=== PATIENT | female | born 1995 | race Caucasian/White ===

== ENCOUNTER 2021-07-05 15:43 | Emergency (ER) | payer BC ==
[~2021-07-05] VITALS: Ht 175.3 cm; Wt 68.2 kg
[2021-07-05] MEDS ORDERED: BIRTH CONTROL (16:42)
[2021-07-05] MEDS ORDERED: PRISTIQ50 M1 PO (16:43)
[2021-07-05 16:52] LABS: BASO # 0.02 K/mm3 (0.02-0.10); EOS # 0.04 K/mm3 (0.04-0.40); EOS % 0.3 % (1.0-5.0); HEMOGLOBIN 13.4 g/dL (12.5-16.0); MEAN CELL VOLUME 97 fl (78-100); MEAN CORPUSCULAR HEMOGLOBIN 32 pg (27-31); MEAN CORPUSCULAR HGB CONC 33 g/dL (33-37); MEAN PLATELET VOLUME 11.8 fl (7.4-10.4); MONO # 0.78 K/mm3 (0.20-0.80); NEU # 8.02 K/mm3 (1.40-6.50); PLATELET COUNT 207 K/mm3 (130-400); RED BLOOD COUNT 4.25 M/mm3 (4.10-5.30); RED CELL DISTRIBUTION WIDTH 12.6 % (11.5-14.5); WHITE BLOOD COUNT 11.7 K/mm3 (4.8-10.8)
[2021-07-05 16:58] LABS: POTASSIUM 4.1 mmol/L (3.5-5.1); SODIUM 139 mmol/L (136-145)
[2021-07-05 16:59] LABS: ALBUMIN 4.4 g/dL (3.5-5.0); CALCIUM 9.7 mg/dL (8.3-10.5)
[2021-07-05 17:01] LABS: TOTAL PROTEIN 7.8 g/dL (6.4-8.3)
[2021-07-05 17:02] LABS: CARBON DIOXIDE 20 mmol/L (22-29); GLUCOSE 76 mg/dL (65-105); TOTAL BILIRUBIN 0.4 mg/dL (0.2-1.2)
[2021-07-05 17:06] LABS: AST-SGOT 22 U/L (5-34)
[2021-07-05 17:09] LABS: ALT/SGPT 18 U/L (0-55)
[2021-07-05 17:15] LABS: TROPONIN-I < 0.030 ng/mL (<0.030)
[2021-07-05 17:28] LABS: D-DIMER 0.98 mg/L FEU (0.15-0.50)
[2021-07-05 20:25] VITALS: BP 103/71
== END 2021-07-05 20:25 | disposition home or self-care (01) ==
LOC: ED 15:43
PROVIDERS: Physician Assistant
DX: R09.1 Pleurisy (principal); R20.2 Paresthesia of skin; R79.1 Abnormal coagulation profile
CPT/HCPCS: J1885; Q9967

== ENCOUNTER 2021-07-08 08:21 | Emergency (ER) | payer BC ==
[~2021-07-08] VITALS: Ht 175.3 cm; Wt 68.2 kg
[~2021-07-08 08:21] MED LIST: BIRTH CONTROL; PRISTIQ50 M1 PO
[2021-07-08] MEDS ORDERED: INDOMETHACIN50 M2 PO (09:21)
[2021-07-08] MEDS ORDERED: OMEPRAZOLE40 MG PO (09:21)
[2021-07-08 10:02] LABS: ALBUMIN 4.2 g/dL (3.5-5.0); POTASSIUM 4.6 mmol/L (3.5-5.1)
[2021-07-08 10:03] LABS: BASO # 0.01 K/mm3 (0.02-0.10); CALCIUM 9.7 mg/dL (8.3-10.5); EOS # 0.04 K/mm3 (0.04-0.40); EOS % 0.9 % (1.0-5.0); HEMATOCRIT 38.8 % (37.0-47.0); HEMOGLOBIN 12.9 g/dL (12.5-16.0); LYMPH# 1.52 K/mm3 (1.50-4.00); MEAN CELL VOLUME 96 fl (78-100); MEAN CORPUSCULAR HEMOGLOBIN 32 pg (27-31); MEAN CORPUSCULAR HGB CONC 33 g/dL (33-37); MEAN PLATELET VOLUME 10.4 fl (7.4-10.4); MONO # 0.44 K/mm3 (0.20-0.80); NEU # 2.69 K/mm3 (1.40-6.50); PLATELET COUNT 246 K/mm3 (130-400); RED BLOOD COUNT 4.05 M/mm3 (4.10-5.30); WHITE BLOOD COUNT 4.7 K/mm3 (4.8-10.8)
[2021-07-08 10:04] LABS: TOTAL PROTEIN 7.4 g/dL (6.4-8.3)
[2021-07-08 10:06] LABS: TOTAL BILIRUBIN 0.5 mg/dL (0.2-1.2)
[2021-07-08 11:17] LABS: URINE APPEARANCE CLEAR; URINE COLOR YELLOW
[2021-07-08 11:18] LABS: URINE BILIRUBIN NEGATIVE (NEGATIVE); URINE BLOOD NEGATIVE (NEGATIVE); URINE GLUCOSE NEGATIVE (NEGATIVE); URINE KETONE NEGATIVE (NEGATIVE); URINE LEUKOCYTE ESTERASE 1+ (NEGATIVE); URINE MUCUS PRESENT (NOT PRESENT); URINE NITRATE NEGATIVE (NEGATIVE); URINE PROTEIN(semi-quant) NEGATIVE (NEGATIVE); URINE UROBILINOGEN NORMAL (NORMAL)
[2021-07-08 11:55] VITALS: BP 104/75
== END 2021-07-08 12:00 | disposition home or self-care (01) ==
LOC: ED 08:21
PROVIDERS: Nurse Practitioner
DX: R55 Syncope and collapse (principal); R07.89 Other chest pain; R79.1 Abnormal coagulation profile; Z20.822 Contact with and (suspected) exposure to COVID-19; Z32.02 Encounter for pregnancy test, result negative
CPT/HCPCS: 15972

== ENCOUNTER → 2021-07-13 | Outpatient (CLI) | payer BC ==
[~2021-07-13] MED LIST changes: +INDOMETHACIN50 M2 PO; +OMEPRAZOLE40 MG PO
[2021-07-13 19:09] LABS: EOS # 0.04 K/mm3 (0.04-0.40); EOS % 0.7 % (1.0-5.0); HEMATOCRIT 40.1 % (37.0-47.0); LYMPH# 1.66 K/mm3 (1.50-4.00); MEAN CELL VOLUME 97 fl (78-100); MEAN CORPUSCULAR HEMOGLOBIN 31 pg (27-31); MEAN CORPUSCULAR HGB CONC 32 g/dL (33-37); MEAN PLATELET VOLUME 11.6 fl (7.4-10.4); MONO # 0.53 K/mm3 (0.20-0.80); NEU # 3.13 K/mm3 (1.40-6.50); PLATELET COUNT 258 K/mm3 (130-400); RED BLOOD COUNT 4.14 M/mm3 (4.10-5.30); RED CELL DISTRIBUTION WIDTH 12.3 % (11.5-14.5); WHITE BLOOD COUNT 5.4 K/mm3 (4.8-10.8)
[2021-07-13 20:29] LABS: ERYTHROCYTE SEDIMENTATION RATE 15 mm/hr (0-20); URINE APPEARANCE CLEAR; URINE BILIRUBIN NEGATIVE (NEGATIVE); URINE BLOOD NEGATIVE (NEGATIVE); URINE COLOR LT YELLOW; URINE GLUCOSE NEGATIVE (NEGATIVE); URINE KETONE NEGATIVE (NEGATIVE); URINE LEUKOCYTE ESTERASE NEGATIVE (NEGATIVE); URINE NITRATE NEGATIVE (NEGATIVE); URINE PROTEIN(semi-quant) NEGATIVE (NEGATIVE); URINE UROBILINOGEN NORMAL (NORMAL); URINE WBC 0-1 /hpf (0-3)
[2021-07-15 00:35] LABS: COMPLEMENT C3 125 mg/dL (83-193); COMPLEMENT-C4 18 mg/dL (15-57)
[2021-07-15 10:36] LABS: ANA SCREEN with REFLEX Negative (Negative)
[2021-07-15 12:56] LABS: LUPUS ANTICOAGULANT PTT 35.3 Seconds (())
[2021-07-15 13:21] LABS: LUPUS ANTICOAGULANT DRVVT 1.14 ratio (()); LUPUS ANTICOAGULANT INTERP 38.9 Seconds (())
== END ==
LOC: LAB 15:57
PROVIDERS: Physician Assistant Medical
DX: I73.00 Raynaud's syndrome without gangrene (principal)

== ENCOUNTER → 2022-05-18 | Outpatient (CLI) | payer OTHER ==
[2022-05-18 19:22] LABS: BASO # 0.02 K/mm3 (0.02-0.10); EOS # 0.04 K/mm3 (0.04-0.40); EOS % 0.5 % (1.0-5.0); HEMATOCRIT 37.4 % (37.0-47.0); HEMOGLOBIN 12.6 g/dL (12.5-16.0); LYMPH# 2.98 K/mm3 (1.50-4.00); MEAN CELL VOLUME 94 fl (78-100); MEAN CORPUSCULAR HEMOGLOBIN 32 pg (27-31); MEAN CORPUSCULAR HGB CONC 34 g/dL (33-37); MEAN PLATELET VOLUME 10.2 fl (7.4-10.4); MONO # 0.46 K/mm3 (0.20-0.80); NEU # 3.86 K/mm3 (1.40-6.50); PLATELET COUNT 252 K/mm3 (130-400); RED BLOOD COUNT 3.97 M/mm3 (4.10-5.30); RED CELL DISTRIBUTION WIDTH 11.9 % (11.5-14.5); WHITE BLOOD COUNT 7.4 K/mm3 (4.8-10.8)
[2022-05-18 19:28] LABS: ALBUMIN 4.5 g/dL (3.5-5.0)
[2022-05-18 19:29] LABS: CALCIUM 9.8 mg/dL (8.3-10.5)
[2022-05-18 19:31] LABS: TOTAL PROTEIN 7.1 g/dL (6.4-8.3)
[2022-05-18 19:33] LABS: TOTAL BILIRUBIN 0.5 mg/dL (0.2-1.2)
[2022-05-18 19:39] LABS: URINE APPEARANCE CLEAR; URINE BILIRUBIN NEGATIVE (NEGATIVE); URINE BLOOD NEGATIVE (NEGATIVE); URINE COLOR LIGHT YELLOW; URINE GLUCOSE NEGATIVE (NEGATIVE); URINE KETONE NEGATIVE (NEGATIVE); URINE LEUKOCYTE ESTERASE NEGATIVE (NEGATIVE); URINE NITRATE NEGATIVE (NEGATIVE); URINE PROTEIN(semi-quant) TRACE (NEGATIVE); URINE UROBILINOGEN NORMAL (NORMAL); URINE WBC 0-1 /hpf (0-3)
== END ==
LOC: AMSURD 18:50 → RAD 18:50
PROVIDERS: Family Medicine
DX: K63.89 Other specified diseases of intestine (principal)